=== PATIENT | female | born 1995 | race Caucasian/White ===

== ENCOUNTER 2022-10-18 06:05 | Emergency (ER) | payer OTHER ==
[~2022-10-18] VITALS: Ht 154.9 cm; Wt 63.5 kg
[2022-10-18 06:20] VITALS: BP 145/76; PULSE 120; RESP 28; TEMP 97.4; O2SAT 100
[2022-10-18] MEDS ORDERED: LORazepam 2 MG/ML VIAL IVP ONE (06:45)
[2022-10-18 07:05] LABS: BASOPHILS % (AUTO) 0.1 % (0.0-2.0); HEMATOCRIT 40.4 % (36-48); HEMOGLOBIN 13.8 g/dL (12.0-16.0); LYMPHOCYTES # (AUTO) 0.5 K/uL (2.5-16.5); LYMPHOCYTES % (AUTO) 2.8 % (20.5-51.1); MEAN CORPUSCULAR HEMOGLOBIN 30 pg (27-31); MEAN CORPUSCULAR HGB CONC 34 g/dL (33-37); MEAN CORPUSCULAR VOLUME 87.2 fL (80-94); MONOCYTES # (AUTO) 0.6 K/uL (0.8-1.0); MONOCYTES % (AUTO) 3.9 % (1.7-9.3); NEUTROPHILS # (AUTO) 15.5 K/uL (1.8-7.7); NEUTROPHILS % (AUTO) 93.2 % (42.2-75.2); PLATELET COUNT (AUTO) 267 K/uL (140-450); RED BLOOD CELL COUNT(AUTO) 4.64 MIL/uL (4.20-5.40); RED CELL DISTRIBUTION WIDTH 12.6 % (11.6-13.7); WHITE BLOOD COUNT (AUTO) 16.7 K/uL (4.8-10.8)
[2022-10-18 07:30] LABS: ALANINE AMINOTRANSFERASE 33 U/L (12-78); ALBUMIN 4.2 g/dL (3.4-5.0); ALKALINE PHOSPHATASE 64 U/L (50-136); ASPARTATE AMINOTRANSFERASE 41 U/L (15-37); CALCIUM 9.4 mg/dL (8.5-10.1); CARBON DIOXIDE 21.9 mmol/L (21-32); CHLORIDE 100 mmol/L (98-107); CREATININE 1.1 mg/dL (0.6-1.3); GFR ARICAN-AMERICAN 76 mL/min (>90); GFR NON ARICAN-AMERICAN 62 mL/min (>90); GLUCOSE 142 mg/dL (74-106); SODIUM SERUM 134 mmol/L (136-145); THYROID STIMULATING HORMONE 0.59 uIU/mL (0.34-3.74); TOTAL BILIRUBIN 0.9 mg/dL (0.0-1.0); UREA NITROGEN, BLOOD 18 mg/dL (7-18)
[2022-10-18 07:32] LABS: POTASSIUM 2.9 mmol/L (3.5-5.1)
[2022-10-18 07:39] VITALS: BP 145/76; PULSE 120; RESP 28; TEMP 97.4
[2022-10-18] MEDS ORDERED: POTASSIUM CHLORIDE 10 MEQ TABER PO ONE (08:00)
[2022-10-18] MEDS ORDERED: CEPH-588 PO (08:22)
[2022-10-18 08:23] VITALS: O2SAT 100
[2022-10-19] MEDS ORDERED: CEPH-588 PO (14:48)
[2022-10-19] MEDS ORDERED: DIPH25TA53 PO (14:48)
[2022-10-19] MEDS ORDERED: IBUP-2213 PO (14:48)
[2022-10-19] MEDS ORDERED: SULF-59 PO (14:48)
== END 2022-10-18 08:45 | disposition home or self-care (01) ==
LOC: MED 06:05
DX: F41.0 Panic disorder [episodic paroxysmal anxiety] (principal); N39.0 Urinary tract infection, site not specified; F12.90 Cannabis use, unspecified, uncomplicated; Z79.899 Other long term (current) drug therapy
CPT/HCPCS: 36415; 80053; 81002; 81025; 84443; 84484; 85025; 85379; 87086; 93005; 96374; 99284; J2060

== ENCOUNTER 2022-10-19 12:54 | Emergency (ER) | payer OTHER ==
[~2022-10-19] VITALS: Ht 154.9 cm; Wt 63.1 kg
[~2022-10-19 12:54] MED LIST: CEPH-588 PO
[2022-10-19 13:15] VITALS: PULSE 117; RESP 20; TEMP 99.7; O2SAT 99
[2022-10-19] MEDS ORDERED: IBUPROFEN 600 MG TAB PO ONE (13:40)
[2022-10-19] MEDS ORDERED: cefTRIAXone 1,000 MG in LIDOCAINE MPF 1% 2.1 ML IM ONE (14:40)
[2022-10-19] MEDS ORDERED: IBUP-2213 PO (14:48)
[2022-10-19] MEDS ORDERED: SULF-59 PO (14:48)
[2022-10-19] MEDS ORDERED: DIPH25TA53 PO (14:48)
[2022-10-19] MEDS ORDERED: CEPH-588 PO (14:48)
[2022-10-19] MEDS ORDERED: cefTRIAXone 1,000 MG VIAL ONE (14:55)
[2022-10-19] MEDS ORDERED: LIDOCAINE MPF 1% 5 ML ONE (14:55)
[2022-10-19 15:05] VITALS: BP 112/65; PULSE 89; RESP 20; TEMP 99.7; O2SAT 99
== END 2022-10-19 15:05 | disposition home or self-care (01) ==
LOC: MED 12:54
DX: L03.115 Cellulitis of right lower limb (principal); Z79.899 Other long term (current) drug therapy
CPT/HCPCS: 96372; 99283; J0696; J2001